=== PATIENT | male | born 1965 | race Caucasian/White ===

== ENCOUNTER 2017-12-24 11:22 | Observation (INO) | payer BC ==
[~2017-12-24] VITALS: Ht 180.3 cm; Wt 106.7 kg
[2017-12-24 12:04] LABS: BASOPHILS # (AUTO) 0.1 (0.0-0.1); BASOPHILS % 0.9 % (0.0-1.0); EOSINOPHILS # (AUTO) 0.2 (0.0-0.4); EOSINOPHILS % 2.2 % (0.0-6.0); HEMATOCRIT 48.3 % (38.2-49.6); HEMOGLOBIN 16.6 g/dL (14.0-18.0); LYMPHOCYTES # (AUTO) 2.5 (1.0-3.2); MEAN CORPUSCULAR HEMOGLOBIN 30.1 pg (28-32); MEAN CORPUSCULAR HGB CONC 34.4 g/dL (31-35); MEAN CORPUSCULAR VOLUME 87.5 fL (81-99); MONOCYTES # (AUTO) 0.9 (0.2-0.8); MONOCYTES % 8.4 % (4.4-11.3); NEUTROPHILS # (AUTO) 6.8 (2.1-6.9); NEUTROPHILS % 63.9 % (38.7-80.0); PLATELET COUNT 223 x10e3/uL (140-360); RED BLOOD COUNT 5.52 x10e6/uL (4.3-5.7); RED CELL DISTRIBUTION WIDTH 13.2 % (11.7-14.4)
[2017-12-24 12:18] LABS: INR 0.83; PARTIAL THROMBOPLASTIN TIME 23.4 seconds (23.8-35.5); PROTHROMBIN TIME 12.2 seconds (11.9-14.5)
[2017-12-24 12:20] LABS: CLARITY,URINE CLEAR (CLEAR); COLOR,URINE YELLOW (YELLOW)
[2017-12-24 12:21] LABS: BILIRUBIN,URINE NEGATIVE (NEGATIVE); KETONES,URINE NEGATIVE (NEGATIVE); LEUKOCYTE ESTERASE ,URINE NEGATIVE (NEGATIVE); NITRITE,URINE NEGATIVE (NEGATIVE); PROTEIN,URINE DIPSTICK NEGATIVE (NEGATIVE); URINE UROBILINOGEN 0.2 mg/dL (0.2 - 1)
[2017-12-24 12:25] LABS: EPITHELIAL CELLS,URINE RARE /LPF
[2017-12-24 12:31] LABS: ALANINE AMINOTRANSFERASE 63 IU/L (0-55); ALBUMIN 4.3 g/dL (3.5-5.0); ALBUMIN/GLOBULIN RATIO 1.4 (0.8-2.0); ALKALINE PHOSPHATASE 56 IU/L (40-150); ANION GAP 14.9 mmol/L (8-16); BLOOD UREA NITROGEN 19 mg/dL (7-26); BUN/CREATININE RATIO 18 (6-25); CALCIUM 9.6 mg/dL (8.4-10.2); CARBON DIOXIDE 26 mmol/L (22-29); CHLORIDE 104 mmol/L (98-107); CREATINE KINASE 60 IU/L (30-200); CREATININE, SERUM 1.08 mg/dL (0.72-1.25); EST GLOMERULAR FILTRATION RATE > 60 ML/MIN (60-); GLUCOSE 96 mg/dL (74-118); POTASSIUM 3.9 mmol/L (3.5-5.1); SODIUM 141 mmol/L (136-145)
--- NOTE | 2017-12-24 13:57 | Diagnostic Imaging Report ---
Exam: Brain MRI without IV contrast History: Confusion Comparison studies: None Technique: Axial T2 FS, axial T2*GRE, axial T2 FLAIR, axial DWI, axial T2 and 3-D T1 with axial, coronal and sagittal reformats. Intravenous contrast: None Findings: Scalp: Normal in signal. No masses. Bone marrow: Normal in signal intensity. Brain sulci: Appropriate for age. Ventricles: Normal in size. No hydrocephalus. Extra axial spaces: No mass, no fluid collection. Parenchyma: Normal brain volume. No focal disproportionate lobar, hippocampal, brainstem or cerebellar atrophy. No abnormal signal intensities. No masses, hemorrhage, acute or chronic ischemic insults. Suprasellar region: No abnormalities. Craniocervical junction: Patent foramen magnum. No Chiari malformation. Vessels: Normal flow-voids in the arteries and sinuses. IMPRESSION: No intracranial abnormalities. Signed by: Dr. Shamar Zepeda M.D. on 12/24/2017 1:52 PM
[2017-12-24 15:25] VITALS: BP 127/84
[2017-12-24 15:28] VITALS: BP 130/88
[2017-12-24 15:40] VITALS: BP 130/88
[2017-12-24 20:00] VITALS: BP 142/81
[2017-12-24 20:52] VITALS: BP 130/88
[2017-12-24] MEDS ORDERED: ENALAPRILAT IV INJ 1.25 MG/ML VIAL IV PRN (22:30)
[2017-12-24] MEDS ORDERED: ACETAMINOPHEN 325 MG TAB PO PRN (22:30)
[2017-12-24] MEDS ORDERED: METOPROLOL TARTRATE INJ 1 MG/ML VIAL IV PRN (22:30)
[2017-12-24] MEDS ORDERED: ONDANSETRON HCL INJ 2 MG/ML VIAL IV PRN (22:30)
[2017-12-25 01:40] VITALS: BP 106/69
[2017-12-25] MEDS: FAMOTIDINE 20 MG TAB PO SCH ×2 (03:30→07:45)
[2017-12-25 04:15] VITALS: BP 131/82
[2017-12-25 05:48] LABS: ANION GAP 12.4 mmol/L (8-16); BLOOD UREA NITROGEN 18 mg/dL (7-26); BUN/CREATININE RATIO 16 (6-25); CALCIUM 9.3 mg/dL (8.4-10.2); CARBON DIOXIDE 26 mmol/L (22-29); CHLORIDE 108 mmol/L (98-107); CHOL/HDL RATIO 4.4 (3.9-4.7); CHOLESTEROL 185 MD/DL (0-199); CREATININE, SERUM 1.16 mg/dL (0.72-1.25); EST GLOMERULAR FILTRATION RATE > 60 ML/MIN (60-); GLUCOSE 109 mg/dL (74-118); HDL CHOLESTEROL 42 MG/DL (40-60); LDL CHOLESTEROL 112 MG/DL (60-130); POTASSIUM 4.4 mmol/L (3.5-5.1); SODIUM 142 mmol/L (136-145); TRIGLYCERIDES 154 MG/DL (0-149)
[2017-12-25 06:08] LABS: THYROID STIMULATING HORMONE 1.044 uIU/mL (0.350-4.940)
[2017-12-25 07:59] LABS: BASOPHILS # (AUTO) 0.1 (0.0-0.1); BASOPHILS % 1.4 % (0.0-1.0); EOSINOPHILS # (AUTO) 0.4 (0.0-0.4); EOSINOPHILS % 5.4 % (0.0-6.0); HEMATOCRIT 46.4 % (38.2-49.6); HEMOGLOBIN 15.6 g/dL (14.0-18.0); LYMPHOCYTES # (AUTO) 2.1 (1.0-3.2); LYMPHOCYTES % 29.2 % (18.0-39.1); MEAN CORPUSCULAR HEMOGLOBIN 30.1 pg (28-32); MEAN CORPUSCULAR HGB CONC 33.6 g/dL (31-35); MEAN CORPUSCULAR VOLUME 89.6 fL (81-99); MONOCYTES # (AUTO) 0.8 (0.2-0.8); NEUTROPHILS # (AUTO) 3.6 (2.1-6.9); PLATELET COUNT 201 x10e3/uL (140-360); RED BLOOD COUNT 5.18 x10e6/uL (4.3-5.7); RED CELL DISTRIBUTION WIDTH 13.4 % (11.7-14.4)
[2017-12-25 08:00] VITALS: BP 115/89
[2017-12-25 08:10] VITALS: BP 115/89
[2017-12-25] MEDS ORDERED: LORATADINE 10 MG TAB PO PRN (08:45)
[2017-12-25] MEDS ORDERED: ASPIRIN 81 MG ENTERIC COATED PO SCH (09:00)
[2017-12-25] MEDS ORDERED: ACETAMINOPHEN/ASPIRIN/CAFFEINE 1 EA TAB PO PRN (09:30)
[2017-12-25 11:35] VITALS: BP 129/92
--- NOTE | 2017-12-25 15:24 | Electroencephalogram ---
DATE OF STUDY: December 25, 2017 REQUESTING PHYSICIAN: Ana Perez MD PATIENT HISTORY: This 52-year-old man with history of amnesia is having an EEG for evaluation of epileptiform activity. The patient is not taking any medications that might affect the EEG. TECHNIQUE: This is a routine, portable EEG, recorded digitally, using the International 10/20 Electrode Placement System, and done in the inpatient setting with the patient awake. The EEG is adequate for interpretation. DESCRIPTION: Well-organized, well-sustained, 10-11 Hz activity is best seen symmetrically over the posterior head regions. No focal or epileptiform activity is recorded. Sleep is not recorded. Photic stimulation does produce a driving response. Hyperventilation does not produce slowing. INTERPRETATION: This electroencephalogram is normal with the patient awake and drowsy. No epileptiform discharges are seen. Job#: [id number] [place] MTDD
--- NOTE | 2017-12-25 16:38 | Consultation ---
DATE OF CONSULTATION: December 25, 2017 NEUROLOGY CONSULT HISTORY OF PRESENT ILLNESS: Mr. Khan is a 52-year-old lheau-cvyv-blpckpod man with past medical history of celiac disease, admitted to [facility] on December 24, 2017, with amnesia. On the morning of admission, the patient awoke in his usual state of health. He went through his morning routine. Mr. Khan routinely leaves his house at approximately 0600 every morning. However, on the day of admission, he left his house at 0625. Mr. Khan assumed he became distracted while answering e-mails from work. The patient prepared himself some coffee, went to his car, and drove to work. Approximately [address], he realized he had taken an atypical route to work. He had taken this route previously, but he has other routes to work which are generally faster and less stressful. The patient arrived at his place of work at approximately 0730. Mr. Khan thought it was Thursday, but every time he looked at either his smart phone or computer, he saw it was . Later in the morning, while speaking with several coworkers, Mr. Khan relayed his symptoms to them. His co-workers commented to the patient that he "seemed different." Concerned about his symptoms, the patient was taken to the company physician by his coworkers for further evaluation. After a brief examination, emergency medical services were notified and Mr. Khan was transported to [facility] by ambulance for further evaluation. Upon arrival in the emergency center, the patient was afebrile with a blood pressure of 135/106 mmHg and a pulse of 105 beats per minute. His neurological examination is unavailable for review at this time. While in the emergency center, the patient underwent a CT of the brain without contrast, which did not show evidence of recent large territorial ischemia, hemorrhage, mass, or mass effect. While in the emergency center, the patient's symptoms spontaneously resolved at approximately 1400 or 1500. Prior to the resolution, the patient spoke with his and friend, who is also a co-worker. Both informed Mr. Khan he seemed coherent and was able to recall in perfect detail events which occurred last week to 20 years ago. The patient does not report a visual field cut or other disturbance, dysarthria, aphasia, facial droop, hemiparesis, hemihypesthesia, poor balance, gait impairment, or dizziness. Mr. Khna has not experienced similar symptoms previously. He does report a mild headache over the past few days which is described as pressure across the forehead. The headache was significantly improved with a decongestant and xhkq-hqk-bboyhee analgesic medications. Mr. Khan does not report a personal history of febrile seizures. There is no known family history of seizure disorder. The patient does not endorse prior head trauma or central nervous system infection (i.e., meningitis, encephalitis). Mr. Khan was admitted to [facility] under observation status for further evaluation and treatment of symptoms. REVIEW OF SYSTEMS: Amnesia. Mild headache. Otherwise the 12-point review of systems is negative. PAST MEDICAL HISTORY: Prior history of hyperlipidemia, prior history of anxiety disorder with panic attacks, celiac disease. PAST SURGICAL HISTORY: Right ACL repair, cholecystectomy, tonsillectomy, appendectomy. PAST HOSPITALIZATIONS: Surgeries/procedures as listed. FAMILY MEDICAL HISTORY: The patient's paternal and maternal grandparents are . Their medical histories are unknown. The patient's father is from cancer at the age of 42 years. Patient's mother is alive and has thyroid disease. Mr. Khan has one sibling, a sister who is alive. His sister has thyroid disease and attention deficit disorder. Mr. Khan has 1 child, a son, who is alive and healthy. SOCIAL HISTORY: The patient is . 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 In the past, he has smoked an occasional cigar, but has not done so in 3 to 4 years. The patient drinks 1 to 2 glasses of wine every other day. The patient does not report current or prior recreational drug use. HOME MEDICATIONS: None. ALLERGIES: CODEINE, PSEUDOEPHEDRINE. MR. KHAN DOES REPORT AN ALLERGY TO CHOCOLATE. THERE ARE NO KNOWN ALLERGIES TO LATEX. THERE ARE NO KNOWN ALLERGIES TO IODINE OR OTHER CONTRAST MATERIALS. PHYSICAL EXAMINATION: VITAL SIGNS: Height 71 inches. Weight 235 pounds. BMI 32.8 kg per meter squared. Blood pressure 131/82 mmHg. Pulse 79 beats per minute. Respiratory rate 18 breaths per minute. Oxygen saturation 95% on room air. GENERAL: The patient is awake and alert. Does not appear distressed. Obese. HEENT: Normocephalic, atraumatic. Pupils are equal, round, and reactive to light. Moist mucous membranes. NECK: Supple. No appreciable thyromegaly. No appreciable carotid bruits. CARDIOVASCULAR: S1 and S2, regular rate and rhythm. No murmurs rubs, or gallops. RESPIRATORY: Clear to auscultation bilaterally. No wheezes, rhonchi, or rales. EXTREMITIES: The skin is warm and dry. No clubbing, cyanosis, or edema. The posterior tibial and dorsalis pedis pulses are 2+ and symmetric. SKIN: No rashes or lesions. NEUROLOGIC: Memory/Attention: The patient is awake and alert. Oriented to person, place time, and situation. Cranial Nerves: Cranial nerve I--Not tested. Cranial nerve II, III, IV, and 6--Pupils are equal and round, react briskly to light (from 4 mm to 2 mm). Extraocular movements intact. No nystagmus. Cranial nerve V--Sensation to light touch and pinprick is intact in the bilateral V1 through V3 distributions. Strength of the temporalis and masseter muscles is within normal limits. Cranial nerve VII--The face is symmetric, as are all facial movements. Strength is within normal limits. Cranial nerve VIII--Hearing is intact to finger rub bilaterally. Cranial nerve IX, X--The soft palate elevates equally and symmetrically. Cranial nerve XI--Normal strength of the bilateral sternocleidomastoid and trapezius muscles. Cranial nerve XII--The tongue protrudes midline and moves symmetrically from side to side. Strength: Bulk is normal. Strength is 5/5 in the bilateral deltoids, biceps, triceps, wrist flexors and extensors, finger flexors and extensors, intrinsic hand muscles, hip flexors, knee flexors and extensors, ankle dorsiflexion and plantar flexion, and intrinsic foot muscles. Tone is normal. DTRs: Deep tendon reflexes are 2+ and symmetric at the triceps, biceps, brachioradialis, patellas, and Achilles. Plantar responses are flexor bilaterally. Sensation: Sensation is intact to light touch and pinprick in both arms and both legs. Cerebellar: Cgkebb-ucvd-pzxsub and heel-yin movements are intact without dysmetria or other impairment. Gait: Deferred. Speech: Spontaneous speech is normal without appreciable dysarthria or aphasia. Repetition is intact. Involuntary Movements: None. Pronator Drift: None. LABORATORY DATA: The patient's complete metabolic panel is unremarkable with the exception of a mildly elevated chloride of 108 and a mildly elevated ALT of 63. Hemoglobin A1c is 5.0. Cardiac enzymes are negative times 1. Total cholesterol 185, triglycerides 154, LDL cholesterol 112, HDL cholesterol 42. TSH 1.044. The CBC with differential and platelets reveals a white blood cell count of 7.01 with 51.0% neutrophils, 29.2% lymphocytes, 12.0% monocytes, 4% eosinophils, and 1.4% basophils. The hemoglobin and hematocrit are 15.6 and 46.4, respectively. The platelet count is 201. The coagulation profile is within normal limits with the exception of a PTT of 23.4. A urinalysis is unremarkable. DIAGNOSTIC STUDIES: 1. Electrocardiogram 12/24/2017: Normal sinus rhythm at 91 beats per minute. 2. MRI of the brain without contrast 12/24/2017: On my review, there is no evidence of recent large territorial ischemia, hemorrhage, mass, or mass effect. There is no cortical dysplasia, or migrational anomalies. There is no mesial temporal sclerosis. Cerebral volumes are appropriate for age. There are no findings suggestive of chronic small-vessel ischemic disease. 3. Bilateral carotid artery ultrasound with Doppler 12/24/2017: There is no atherosclerosis in either carotid artery system. Flow is antegrade in the bilateral vertebral arteries. 4. EEG 12/25/2017: Normal awake and drowsy EEG. ASSESSMENT AND PLAN: Mr. Khan is a 52-year-old ersws-kyvb-htsctgtb man without significant past medical history, admitted with transient amnesia lasting several hours, then spontaneously resolving. His neurological examination is nonfocal. His neuroimaging studies are unremarkable. His electroencephalogram is normal in the awake and drowsy states. Based on the history provided by the patient, his nonfocal neurological examination, and his normal diagnostic studies, is my opinion the patient experienced transient global amnesia. The diagnosis was discussed in detail with the patient, including the fact it is rare for transient global amnesia to recur. No further diagnostic studies are necessary. The patient may be discharged to home. Thank you for this consultation. TIME SPENT: 70 minutes. Job#: [id number] [place] ROCIO
--- NOTE | 2017-12-26 05:20 | Discharge Summary ---
ADMITTING DIAGNOSES 1. Confusion with short term memory loss. 2. Celiac disease. 3. Hypertriglyceridemia. 4. Seasonal allergies. DISCHARGE DIAGNOSES 1. Confusion with short term memory loss. 2. Celiac disease. 3. Hypertriglyceridemia. 4. Seasonal allergies. 5. Transient global amnesia. HISTORY: The patient has a history of seasonal allergies and celiac disease. Surgical history of right ACL and MCL tear, cholecystectomy, tonsillectomy. Family history of diabetes in his grandmother and grandfather and cancer in his father. Patient denies tobacco and illicit drug use, but admit to alcohol about every other day. HOSPITAL COURSE: A 52-year-old male complaints of multiple bouts of short-term memory loss and confusion that began around 6 a.m. yesterday. Lengths of time would pass and patient would not realize what happened during that time. An example was when the patient was driving to work around 6:30 and was [address]8 before he realized where he was. Then once he got to work, patient continued to think that it was Thursday, even though it was . He said he was looking at his phone every 10 minutes to check the day of the week. He said he was doing his Thursday activities at work even though it was . Patient denies weakness, dizziness, and vision changes. On admission, patient had a carotid Doppler that was negative. EKG was normal sinus. MRI of the brain showed no intracranial abnormalities. Neurology was consulted, who ordered an EEG which was also normal. Her dietary restriction for the hypertriglyceridemia and celiac disease. After neurological assessment, patient was cleared to discharge per neurology. Vital signs stable. Patient afebrile. Neurology and patient had lengthy conversation about diagnoses and the fact that recurrent transient global amnesia is very rare. Patient was discharged to home and follow up with primary care in 1 to 2 weeks. Patient and understand discharge instruction. Dictated by: Oumou Nguyen NP SRIDHAR CASEY MD Job#: [id number] VAS
== END 2017-12-25 14:54 | disposition home or self-care (01) ==
LOC: ER 11:22 → ERHOLD 13:28 → IMCU 15:01
PROVIDERS: ADMIT Internal Medicine; ATTEND Internal Medicine
DX: G45.4 Transient global amnesia (principal); R41.0 Disorientation, unspecified; K90.0 Celiac disease; E78.1 Pure hyperglyceridemia; J30.2 Other seasonal allergic rhinitis
CPT/HCPCS: 36415 ×2; 70551; 80048; 80053; 80061; 81001; 82550; 82553; 83036; 83735; 84443; 84484; 85025 ×2; 85610; 85730; 93005; 93880; 95816; 99284; G0378 ×2